=== PATIENT | male | born 1955 | race Caucasian/White ===

== ENCOUNTER → 2017-03-10 | Outpatient (CLI) | payer OTHER ==
[~2017-03-10] MED LIST: LIPITOR10 MG PO
--- NOTE | ~2017-03-10 | EKG ---
[address] [place] [address] ELECTROCARDIOGRAM REPORT Name: DAFNE GALICIA Room #: REG FIDENCIO Min#: [id number] Admission: 03/10/17 Attend Phys: Jose Almazan MD Discharge: Date of : 55 Report #: [id number] THIS REPORT FOR: //name// [facility] Test Date: 2017-03-10 Test Time: 07:24:12 Pat Name: DAFNE GALICIA Department: Room: Gender: Template Reproduction Technician: MONICA : 1955 Requested By: Jose Almazan Order Number: [id number] MD: Octavio Harding Measurements Intervals [place] Rate: 64 P: 8 [place]: 157 QRS: 28 QRSD: 91 T: -5 QT: 409 QTc: 422 Interpretive Statements Sinus rhythm Borderline T abnormalities, inferior leads No previous ECG available for comparison Electronically Signed On 03-10-2017 8:13:37 CRUISE COORDINATOR by Octavio Harding [email or web address] <ELECTRONICALLY SIGNED> By: Octavio Harding MD, [facility] 03/10/17 0813 0724 0724 Octavio Harding MD, FACC /EPI
== END | disposition home or self-care (01) ==
LOC: LITH 07:06
DX: N20.0 Calculus of kidney (principal)